=== PATIENT | male | born 1980 | race African-American/Black ===

== ENCOUNTER 2018-07-25 10:43 | Emergency (ER) | payer SELFPAY ==
[2018-07-25] MEDS ORDERED: IBUPROFEN 200 MG TAB PO ONE (12:10)
--- NOTE | 2018-07-25 12:51 | RAD REPORT ---
EXAM DESCRIPTION: RAD - Hand Left 3 View - 07/25/2018 12:43 pm CLINICAL HISTORY: SWELLING COMPARISON: No comparisons FINDINGS: No acute fracture or dislocation identified. Small bony density seen at the level of the f irst MCP joint radial aspect is likely attributable to previous trauma. Mild soft tissue swelling is seen along the dorsum of the hand.
--- NOTE | 2018-07-25 13:01 | EDPHYS ---
Physician Documentation [facility] Name: Debi Roberson III Age: 38 yrs Sex: Male : 1980 Arrival Date: 07/25/2018 Time: 10:46 Bed 12 Private MD: None, None ED Physician Alexander Schneider HPI: 07/25 12:04 This 38 yrs old Black Male presents to ER via Ambulatory with complaints of Hand wa Swelling. 12:04 The patient or guardian reports injury, pain, swelling, tenderness. The complaints wa affect the MCP of left little finger, MCP of left ring finger and MCP of left middle finger. Context: The problem was sustained at home, resulted from a fall. Onset: The symptoms/episode began/occurred 3 week(s) ago. Modifying factors: The symptoms are alleviated by nothing, the symptoms are aggravated by movement. Associated signs and symptoms: The patient has no apparent associated signs or symptoms. Severity of symptoms: At their worst the symptoms were moderate, in the emergency department the symptoms are unchanged. The patient has not experienced similar symptoms in the past. The patient has not recently seen a physician. Historical: - Allergies: 11:04 No Known Allergies; sv - PSHx: 11:04 Left knee surgery; sv - Immunization history:: Adult Immunizations up to date. - Social history:: Smoking status: Patient/guardian denies using tobacco. - Family history:: not pertinent. - Hospitalizations: : No recent hospitalization is reported. ROS: 12:05 Constitutional: Negative for fever, chills, and weight loss, Eyes: Negative for injury, wa pain, redness, and discharge, ENT: Negative for injury, pain, and discharge, Neck: Negative for injury, pain, and swelling, Cardiovascular: Negative for chest pain, palpitations, and edema, Respiratory: Negative for shortness of breath, cough, wheezing, and pleuritic chest pain, Abdomen/GI: Negative for abdominal pain, nausea, vomiting, diarrhea, and constipation, Back: Negative for injury and pain, : Negative for injury, bleeding, discharge, and swelling, Skin: Negative for injury, rash, and discoloration, Neuro: Negative for headache, weakness, numbness, tingling, and seizure, Psych: Negative for depression, anxiety, suicide ideation, homicidal ideation, and hallucinations. 12:05 MS/extremity: Positive for pain, swelling, tenderness, of the left dorsum of hand, Negative for deformity, ecchymosis, erythema. 12:05 All other systems are negative. Exam: 12:10 Constitutional: This is a well developed, well nourished patient who is awake, alert, wa and in no acute distress. Head/Face: Normocephalic, atraumatic. Eyes: Pupils equal round and reactive to light, extra-ocular motions intact. Lids and lashes normal. Conjunctiva and sclera are non-icteric and not injected. Cornea within normal limits. Periorbital areas with no swelling, redness, or edema. ENT: Nares patent. No nasal discharge, no septal abnormalities noted. Tympanic membranes are normal and external auditory canals are clear. Oropharynx with no redness, swelling, or masses, exudates, or evidence of obstruction, uvula midline. Mucous membranes moist. Neck: Trachea midline, no thyromegaly or masses palpated, and no cervical lymphadenopathy. Supple, full range of motion without nuchal rigidity, or vertebral point tenderness. No Meningismus. Chest/axilla: Normal chest wall appearance and motion. Nontender with no deformity. No lesions are appreciated. Cardiovascular: Regular rate and rhythm with a normal S1 and S2. No gallops, murmurs, or rubs. Normal PMI, no JVD. No pulse deficits. Respiratory: Lungs have equal breath sounds bilaterally, clear to auscultation and percussion. No rales, rhonchi or wheezes noted. No increased work of breathing, no retractions or nasal flaring. Abdomen/GI: Soft, non-tender, with normal bowel sounds. No distension or tympany. No guarding or rebound. No evidence of tenderness throughout. Back: No spinal tenderness. No costovertebral tenderness. Full range of motion. Skin: Warm, dry with normal turgor. Normal color with no rashes, no lesions, and no evidence of cellulitis. Neuro: Awake and alert, GCS 15, oriented to person, place, time, and situation. Cranial nerves II-XII grossly intact. Motor strength 5/5 in all extremities. Sensory grossly intact. Cerebellar exam normal. Normal gait. Psych: Awake, alert, with orientation to person, place and time. Behavior, mood, and affect are within normal limits. 12:10 Musculoskeletal/extremity: Extremities: grossly normal except: noted in the left hand and MCP of left middle finger and MCP of left ring finger and MCP of left little finger: pain, swelling, tenderness. Vital Signs: 11:04 BP 131 / 90; Pulse 66; Resp 18; Temp 98.6; Pulse Ox 99% ; Weight 95.71 kg; Height 6 ft. sv 1 in. (185.42 cm); Pain 2/10; 11:04 Body Mass Index 27.84 (95.71 kg, 185.42 cm) sv Procedures: 12:59 Performed ROSIO WRAP. L hand placed in rosio wrap. post placement distally neurovasc wa intact. tolerated well. MDM: 11:45 Patient medically screened. wa 12:10 Differential diagnosis: dislocation, closed fracture, contusion. Data reviewed: vital wa signs, nurses notes. 12:58 Test interpretation: by ED physician or midlevel provider: L hand x-ray: no acute wa fracture. Response to treatment: the patient's symptoms have markedly improved after treatment. 07/25 11:43 Order name: XRAY Hand LEFT 3 View; Complete Time: 12:58 ss Administered Medications: 11:58 Drug: Motrin 600 mg Route: PO; ss Disposition: 07/25/18 13:00 Discharged to Home. Impression: Acute Left hand Contusion. - Condition is Stable. - Discharge Instructions: Contusion. - Prescriptions for Ibuprofen 800 mg Oral Tablet - take 1 tablet by ORAL route every 8 hours As needed take with food; 30 tablet. - Medication Reconciliation Form, Thank You Letter, Antibiotic Education, Prescription Opioid Use form. - Follow up: Private Physician; When: 1 week; Reason: Re-evaluation by your physician. - Problem is new. - Symptoms have improved. - Notes: wear rosio. take pain medication as prescribed. Signatures: Dispatcher [employer] Rain Davenport RN RN sv Smirch, Shelby, RN RN ss Appiah, William, MD MD wa Corrections: (The following items were deleted from the chart) 13:12 13:00 07/25/2018 13:00 Discharged to Home. Impression: Acute Left hand Contusion. ss Condition is Stable. Forms are Medication Reconciliation Form, Thank You Letter, Antibiotic Education, Prescription Opioid Use. Follow up: Private Physician; When: 1 week; Reason: Re-evaluation by your physician. Problem is new. Symptoms have improved. wa
--- NOTE | 2018-07-25 13:01 | ER ---
Nurse's Notes [facility] Name: Debi Roberson III Age: 38 yrs Sex: Male : 1980 Arrival Date: 07/25/2018 Time: 10:46 Bed 12 Private MD: None, None Diagnosis: Acute Left hand Contusion Presentation: 07/25 11:00 Presenting complaint: Patient states: left hand swelling x 3 weeks. Transition of care: sv patient was not received from another setting of care. Onset of symptoms was July 08, 2018. Risk Assessment: Do you want to hurt yourself or someone else? Patient reports no desire to harm self or others. Care prior to arrival: None. 11:00 Method Of Arrival: Ambulatory sv 11:00 Acuity: GUS 4 sv 11:52 Initial Sepsis Screen: Does the patient meet any 2 criteria? No. Patient's initial ss sepsis screen is negative. Does the patient have a suspected source of infection? No. Patient's initial sepsis screen is negative. Historical: - Allergies: 11:04 No Known Allergies; sv - PSHx: 11:04 Left knee surgery; sv - Immunization history:: Adult Immunizations up to date. - Social history:: Smoking status: Patient/guardian denies using tobacco. - Family history:: not pertinent. - Hospitalizations: : No recent hospitalization is reported. Screenin:53 Abuse screen: Denies threats or abuse. Denies injuries from another. Nutritional ss screening: No deficits noted. Tuberculosis screening: Never had TB. Fall Risk None identified. Assessment: 11:53 General: Appears in no apparent distress. comfortable, Behavior is calm, cooperative, ss Denies fever, feeling ill, fatigue, chills. Pain: Complains of pain in left hand Pain currently is 2 out of 10 on a pain scale. Quality of pain is described as tender, Pain began 3 weeks ago Is continuous. Neuro: Level of Consciousness is awake, alert, obeys commands, Oriented to person, place, time, situation. Cardiovascular: Pulses are palpable in right radial artery and left radial artery. Respiratory: Airway is patent Respiratory effort is even, unlabored, Respiratory pattern is regular, symmetrical. GI: No signs and/or symptoms were reported involving the gastrointestinal system. EENT: Oral mucosa is moist. Throat is clear. Derm: Skin is intact, is healthy with good turgor, Skin is dry, Skin is pink, warm \T\ dry. normal. Musculoskeletal: mild- moderate swelling noted to L hand, ROM remains intact. Vital Signs: 11:04 BP 131 / 90; Pulse 66; Resp 18; Temp 98.6; Pulse Ox 99% ; Weight 95.71 kg; Height 6 ft. sv 1 in. (185.42 cm); Pain 2/10; 11:04 Body Mass Index 27.84 (95.71 kg, 185.42 cm) sv ED Course: 10:46 Patient arrived in ED. mr 10:46 None, None is Private Physician. mr 11:01 Triage completed. sv 11:04 Arm band placed on. sv 11:45 Alexander Schneider MD is Attending Physician. wa 11:52 Antionette Ochoa RN is Primary Nurse. ss 11:53 Patient has correct armband on for positive identification. Bed in low position. Call ss light in reach. 11:53 Patient maintains SpO2 saturation greater than 95% on room air. 12:44 XRAY Hand LEFT 3 View In Process Unspecified. EDMI 12:44 X-ray completed. Portable x-ray completed in exam room. Patient tolerated procedure sw well. 13:11 No provider procedures requiring assistance completed. Patient did not have IV access ss during this emergency room visit. Dave wrap to left wrist, L hand. Administered Medications: 11:58 Drug: Motrin 600 mg Route: PO; ss Outcome: 13:00 Discharge ordered by . wa 13:12 Patient left the ED. Signatures: Dispatcher [employer] EDMS Rain Bran RN RN Nina Gomez mr Antionette Ochoa, SARA RUIZ Pema Bass Alexander Schneider MD MD wa
[2018-07-25 17:05] VITALS: BP 131/90; TEMP 98.6; O2SAT 99
== END 2018-07-25 13:12 | disposition home or self-care (01) ==
LOC: ER 10:43
DX: S60.222A Contusion of left hand, initial encounter (principal); W19.XXXA Unspecified fall, initial encounter
CPT/HCPCS: 99284